=== PATIENT | female | born 1935 | race Caucasian/White ===

== ENCOUNTER 2020-11-29 07:04 | Day surgery (SDC) | payer MEDICARE, BC ==
[2020-11-26 12:42] VITALS: BMI 28.1
--- NOTE | 2020-11-28 16:25 | HP ---
HISTORY OF PRESENT ILLNESS: Ms. Roberson is a pleasant 85-year-old woman presenting to our office for evaluation of roughly 13 months worth of left-sided lower back pain as well as a left lower extremity pain that fits a proximal L5 pattern. She states this is onset after falling at home at the end of the year 2019. She has attempted epidural steroid injections, physical therapy, and medications with limited short-term relief. 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 PAST MEDICAL HISTORY: Significant for gout, hypertension, hypothyroidism, and coronary artery disease. CURRENT MEDICATIONS: 1. Metoprolol. 2. Levothyroxine. 3. Allopurinol. 4. Lisinopril. 5. Furosemide. 6. Calcium. 7. PreserVision. 8. Xarelto. PAST SURGICAL HISTORY: None listed. ALLERGIES: NO KNOWN DRUG ALLERGIES. PHYSICAL EXAMINATION: Deferred for telehealth visit. ASSESSMENT: Lumbar radiculopathy. PLAN: Dr. Barrientos met with the patient, reviewed imaging, advocated for left L4-L5 decompression. He explained to the patient the risks, benefits, and alternatives to procedure. The patient expressed understanding, and elected to move forward with surgery as discussed. I do believe the patient is mentally competent and capable of making medical decisions for herself. We will move forward with surgery as planned. Job ID: [id number]
[2020-11-29] MEDS ORDERED: Levofloxacin 500 mg/D5W 100 ml Premix Bag ONE (08:57)
[2020-11-29] MEDS ORDERED: Clindamycin/D5W 900 mg/50 ml Premix Bag ONE (08:57)
[2020-11-29] MEDS ORDERED: EPINEPHrine 1 MG/ML AMP ONE (09:28)
[2020-11-29] MEDS ORDERED: Thrombin 5000 UNITS/5 ML VIAL ONE (09:28)
[2020-11-29] MEDS ORDERED: Bupivacaine PF 0.5% 30 ML VIAL ONE (09:28)
[2020-11-29] MEDS ORDERED: Fentanyl 100 MCG/2 ML VIAL ONE ×3 (09:52→11:58)
[2020-11-29] MEDS ORDERED: Rocuronium Bromide 10 MG/ML (10ML VIAL) ONE (10:40)
[2020-11-29] MEDS ORDERED: Ondansetron PF 4 MG/2 ML Vial ONE ×2 (10:40→13:41)
[2020-11-29] MEDS ORDERED: PROPOFOL 200 MG/20 ML VIAL ONE (10:40)
[2020-11-29] MEDS ORDERED: Lidocaine 1% PF 5 ML VIAL ONE (10:40)
[2020-11-29] MEDS ORDERED: Esmolol 100 MG/10 ML VIAL ONE (10:40)
[2020-11-29] MEDS ORDERED: Glycopyrrolate 0.2 MG/ML 5 ML SYRINGE ONE (10:40)
[2020-11-29] MEDS ORDERED: ePHEDrine 50 MG/ML VIAL ONE (10:40)
[2020-11-29] MEDS ORDERED: Dexamethasone 20 MG/5 ML VIAL ONE (10:40)
--- NOTE | 2020-11-29 10:54 | OP ---
DATE OF PROCEDURE: 11/29/2020 [employer] REPRESENTATIVE: Keagan Verma PA-C. INDICATION: Pain. DIAGNOSIS: Lumbar radiculopathy. PROCEDURE PERFORMED: Reoperation, left L4-L5 decompression. ANESTHESIA: General. DESCRIPTION OF PROCEDURE: The patient was brought into the operating room and placed under general anesthesia. She was flipped from the supine to prone position on the operating room table. A linear incision was planned at the location of a prior incision. After prepping and draping and after an appropriate operative pause, the incision was created. The soft tissues were swept away from midline. A self-retaining retractor was placed and a C-arm image obtained to confirm the appropriate level. After confirming the appropriate level with C-arm fluoroscopy, high-speed cutting drill bit as well as 2, 3, and 4 mm Kerrisons were used to extend previously identified bone defect laterally to further decompress the lateral recess at L4-L5, and therefore the descending left L5 nerve root. After completing the decompression, the wound was irrigated. Hemostasis was maintained throughout. The wound was then closed in anatomic layers, and a pressure dressing was applied. There were no known procedural complications. Job ID: [id number]
[2020-11-29] MEDS ORDERED: HYDROcodone/Acetaminophen 5/325 mg Tablet ONE (11:46)
[2020-11-29] MEDS ORDERED: Promethazine HCl 25 MG/ML VIAL ONE (15:15)
== END 2020-11-29 15:45 | disposition home or self-care (01) ==
LOC: SDC 07:04
PROVIDERS: ATTEND Neurological Surgery
PROC: 0ST20ZZ Resection of Lumbar Vertebral Disc, Open Approach (ICD-10-PCS; principal; 2020-11-29)
DX: M54.16 Radiculopathy, lumbar region (principal); M43.16 Spondylolisthesis, lumbar region; M48.061 Spinal stenosis, lumbar region without neurogenic claudication; M10.9 Gout, unspecified; I10 Essential (primary) hypertension; E03.9 Hypothyroidism, unspecified; I25.10 Atherosclerotic heart disease of native coronary artery without angina pectoris; I48.91 Unspecified atrial fibrillation; Z79.01 Long term (current) use of anticoagulants; Z79.899 Other long term (current) drug therapy; Z88.0 Allergy status to penicillin; Z96.651 Presence of right artificial knee joint
CPT/HCPCS: 76000; J0171; J1100; J1956; J2405; J2550; J2704; J3010; J3490; S0020